=== PATIENT | male | born 1990 | race African-American/Black ===

== ENCOUNTER 2024-09-06 18:30 | Emergency (ER) | payer BC, SELFPAY ==
[2024-09-06 18:37] VITALS: BP 155/106
--- NOTE | 2024-09-06 18:45 | ED.GENMED ---
History of Present Illness
General
Chief Complaint: Back Pain
Source: patient
Time Seen by Provider: 09/06/24 18:35
History of Present Illness
History of Present Illness:
34-year-old male with past medical history of hypertension and GERD presenting to the emergency department for evaluation of back pain which started yesterday, woke up this morning around 2 AM and when he got up still felt the pain so he took 600 mg
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
abdomen, became acutely diaphoretic and near syncopal but never lost consciousness. He was able to transport the to this emergency department but due to the pain needed to call out of work for the rest of the day. Patient went to urgent care where
he had x-ray imaging done and was given a dose of Toradol which she states took his pain from a 9 out of 10 down to a 2 and reports the x-ray did not show anything abnormal. Urgent care reportedly concerned for pancreatitis so sent him to the ER to
be further eval patient denies any nausea or vomiting, fevers or infectious symptoms, chest pain or shortness of breath or any other concerns.
Past History
Past History
ED Past Medical History: GERD and HTN
ED Past Surgical History: None
Social History
Tobacco: Non-smoker
Alcohol: Occasional
Drug: None
Living: with family
Employment: Employed
Review of Systems
Review of Systems
All Other Systems: ROS reviewed and negative except as documented in HPI and ROS
Phy Exam
Physical Exam
Physical Exam:
GENERAL: Alert , in no apparent distress
EYE: clear conjunctiva b/l
HEAD: NCAT
ENT: mmm.
CARDIAC: Regular rate and rhythm .
LUNGS: Clear breath sounds bilaterally, no acute respiratory distress, no wheezes/rales/rhonchi
ABDOMEN: Soft, mild ttp epigastrum, no r/g, no cvat, negative Her sign, no tenderness at McBurney's point
NEUROLOGICAL: Alert and oriented
SKIN: Warm and dry, skin intact.
MUSCULOSKELETAL: No edema, well perfused.
PSYCH: Normal and appropriate interaction.
Scores
Heart Failure Risk
Heart Failure Risk Score: Not Applicable
Heart Score for Chest Pain Patients
STEMI patient?: Not applicable
Withdrawal Assessment of Alcohol
Withdrawal Assessment Completed?: Not applicable
Course
Orders/Labs/Results
Orders:
Orders
09/06/24 18:40
Electrocardiogram (*1) Urgent
Reason for Study: Abdominal Pain
EKG- Treatment ONCE
09/06/24 18:55
CT Abd/pelvis W Iv Cont Urgent
Comment:
Reason For Exam: upper abd/mid back pain
09/06/24 19:09
Complete Blood Count/With Diff Urgent
Comprehensive Metabolic Panel Urgent
Lipase Urgent
Troponin I Urgent
Abnormal Lab Results
09/06/24
19:09
Absolute Lymphs (auto) 3.5 H 10^3/uL
(1.2-3.4)
Neutrophils % 37.5 L %
(42.2-75.2)
Lymphocytes % 54.2 H %
(20.5-51.1)
Albumin 5.2 H g/dl
(3.5-5.0)
09/06/24 19:09
09/06/24 19:09
Vital Signs
Initial and Last Documented VS:
Initial Vital Signs
Temp Pulse Resp BP Pulse Ox
97.5 F 90 18 155/106 98
09/06/24 18:37 09/06/24 18:37 09/06/24 18:37 09/06/24 18:37 09/06/24 18:37
Last Documented Vital Signs
Temp Pulse Resp BP Pulse Ox
97.5 F 69 20 137/98 98
09/06/24 18:37 09/06/24 21:21 09/06/24 21:21 09/06/24 21:21 09/06/24 21:21
[employer] Grade Teacher consulted with Physician
[employer] Grade Teacher consulted with physician?: Yes
Name of Physician Consulted: Raymundo
MDM/Problems Addressed
Differential Diagnosis Includes:
Disc herniation or nerve impingement, atypical ACS presentation, vascular complications such as dissection, GERD/gastritis, peptic ulcer disease, pancreatitis
MDM/Problems Addressed:
34-year-old male presenting for evaluation of back pain radiating around both sides into the upper part of the abdomen, back pain started yesterday, made acutely worse lifting a heavier patient today. No neurologic symptoms. Pain much improved
with Toradol. Urgent care reportedly concern for pancreatitis however symptoms seem to be unrelated to GI cause. Will check labs, EKG and troponin. Reassessment following
*Radiology
Radiology exam reviewed: radiology read reviewed
*EKG
Heart Rate: 73
Rate: normal
Rhythm: sinus arrhythmia
[place]: normal axis
Ischemia: no ischemia
*Critical Care Note
Total Time (30-74mins, 75-104mins- exclusive of procedures): Not Applicable
Patient Management
Escalation/DeEscalation of care consider admission/obs:
CT scan without any acute pathologies. Patient states pain remains tolerable and he is in no acute distress. At this time I think it is reasonable for patient to be discharged home. Most likely musculoskeletal etiology. Aware of return
precautions to the ER.
ED Attending Note
-
Portions of this chart may have been created with voice recognition software.� Occasional wrong word or��sound alike� substitutions may have occurred due to the inherent limitations of voice recognition software.
Discharge Plan
Departure
Patient Disposition: Home (Routine Discharge)
Date of Disposition: 09/06/24
Time of Disposition: 21:01
Patient with high blood pressure during this ER visit?: Yes
Discharge Problem:
Dorsalgia of thoracic region
Instructions: Upper Back Pain (DC)
Prescriptions:
New
ketorolac 10 mg tablet
10 mg PO Q8H Qty: 10 0RF
Rx Instructions:
maximum total duration of 5 days from all oral, intranasal, or parenteral formulations
Referrals:
PRISCILL[facility] CHRISTIAN [Other]
Stand Alone Forms: Return to Work
Interventions
Interventions:
*Risk Screen - Suicide Last Done: 09/06/24 18:37
*General Assessment Last Done: 09/06/24 19:11
*Neglect/Abuse Screening Last Done: 09/06/24 19:11
*ED- Fall Risk Assessment Last Done: 09/06/24 19:11
*ED COVID-19 Vaccine History Last Done: 09/06/24 19:11
*Nursing Disposition Last Done: 09/06/24 21:21
ED-Musculoskeletal Assessment Last Done: 09/06/24 19:49
Discharge Date and Time
Discharge Date/Time: 09/06/24 21:22
Print Language: [place]
[2024-09-06 19:01] VITALS: BMI 41.2
[2024-09-06 19:12] VITALS: BP 155/109
[2024-09-06 19:22] LABS: Hematocrit 41.4 % (39.0-52.0); Mean Corp Hgb Conc. 33.8 g/dL (33.0-37.0); Mean Corpuscular Hgb 29.3 pg (27.0-31.0); Mean Corpuscular Volume 86.6 fL (80.0-94.0); Mean Platelet Volume 9.9 fL (7.4-10.4); Platelet Count 281 10^3/uL (130-400); Red Blood Cell Count 4.78 10^6/uL (4.70-6.10); Red Cell Dist. Width 13.3 % (11.5-14.5); White Blood Cell Count 6.4 10^3/uL (4.8-10.8)
[2024-09-06 19:43] LABS: ALT (SGPT) 41 U/L (0-50); AST (SGOT) 31 U/L (17-59); Albumin 5.2 g/dl (3.5-5.0); Alkaline Phosphatase 63 U/L (38-126); Blood Urea Nitrogen 13 mg/dl (9-20); Calcium 10.2 mg/dl (8.4-10.2); Carbon Dioxide 25 mmol/L (22-30); Chloride 106 mmol/L (98-107); Estimated Creatinine Clearance > 125 ml/min; Glucose 97 mg/dl (70-99); Potassium 4.6 mmol/L (3.5-5.1); Sodium 142 mmol/L (135-145); Total Bilirubin 0.8 mg/dl (0.2-1.3); Total Protein 7.9 g/dl (6.3-8.2); eGFR > 60.00
[2024-09-06 19:44] LABS: Lipase 50 U/L (23-300); Troponin I < 0.012 ng/ml
[2024-09-06 19:53] LABS: % Basophils 0.5 % (0-2); % Eosinophils 1.3 % (0-6); % Immature Granulocytes 0.2 % (0-0.5); % Lymphocytes 54.2 % (20.5-51.1); % Monocytes 6.3 % (1.7-9.3); % Neutrophils 37.5 % (42.2-75.2); Absolute Eosinophils 0.1 10^3/uL (0-0.7); Absolute Lymphocytes 3.5 10^3/uL (1.2-3.4); Absolute Monocytes 0.4 10^3/uL (0.1-0.6); Absolute Neutrophils 2.4 10^3/uL (1.4-6.5); Nucleated Red Blood Cells % 0 % (-)
[2024-09-06 21:21] VITALS: BP 137/98
== END 2024-09-06 21:22 | disposition home or self-care (01) ==
LOC: EMR 18:30
PROVIDERS: Physician Assistant Medical; EMERGENCY PHYSICIAN Emergency Medicine
DX: M54.6 Pain in thoracic spine (principal); I10 Essential (primary) hypertension; K21.9 Gastro-esophageal reflux disease without esophagitis
CPT/HCPCS: 99284; 74177; 80053; 83690; 84484; 85025; 93005; Q9967